=== PATIENT | male | born 1985 | race Caucasian/White ===

== ENCOUNTER 2018-05-14 12:56 | Emergency (ER) | payer BC ==
[~2018-05-14] VITALS: Ht 185.4 cm; Wt 86.2 kg
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
[2018-05-14] MEDS ORDERED: TYLENOL WITH C1 EACH PO (14:34)
[2018-05-14] MEDS ORDERED: CYCLOBENZAPRINE5 MG PO (14:34)
[2018-05-14 14:56] VITALS: BP 125/99
== END 2018-05-14 15:14 | disposition home or self-care (01) ==
LOC: ER 13:03
DX: M54.2 Cervicalgia (principal); M54.6 Pain in thoracic spine; S16.1XXA Strain of muscle, fascia and tendon at neck level, initial encounter; V43.52XA Car driver injured in collision with other type car in traffic accident, initial encounter; Y92.488 Other paved roadways as the place of occurrence of the external cause
CPT/HCPCS: 72125; 72128; 99283